=== PATIENT | female | born 1965 | race Caucasian/White ===

== ENCOUNTER 2018-03-21 23:51 | Emergency (ER) | payer OTHER ==
[~2018-03-21] VITALS: Ht 177.8 cm; Wt 65.8 kg
[2018-03-22 01:02] VITALS: BP 172/102
== END 2018-03-22 01:03 | disposition home or self-care (01) ==
LOC: M.ERS 23:51
DX: B35.0 Tinea barbae and tinea capitis (principal); F17.210 Nicotine dependence, cigarettes, uncomplicated; Z88.6 Allergy status to analgesic agent; Z88.8 Allergy status to other drugs, medicaments and biological substances

== ENCOUNTER 2021-06-22 13:52 | Emergency (ER) | payer OTHER, MEDICAID ==
[~2021-06-22] VITALS: Ht 177.8 cm; Wt 90.7 kg
[2021-06-22 15:39] VITALS: BP 177/81
== END 2021-06-22 15:40 | disposition home or self-care (01) ==
LOC: M.ERS 13:52
DX: M25.531 Pain in right wrist (principal); R51.9 Headache, unspecified; M54.2 Cervicalgia; Z90.89 Acquired absence of other organs; Z88.8 Allergy status to other drugs, medicaments and biological substances; Z88.6 Allergy status to analgesic agent; Y04.8XXA Assault by other bodily force, initial encounter; Y93.89 Activity, other specified; Y92.89 Other specified places as the place of occurrence of the external cause; Y99.8 Other external cause status